=== PATIENT | female | born 1980 | race Caucasian/White ===

== ENCOUNTER → 2016-08-13 | Outpatient (CLI) | payer OTHER ==
--- NOTE | 2016-08-13 12:47 | US ---
August 13, [address] Kerwin Brown, Thank you for requesting consultation and a ultrasound to evaluate anatomy for your patient, Mrs. Toth. As you know, Argenis is a 35 year old G 1, P 0 with a rossi preg nolberto dating 20 w 0 d; MARTHA of 12/31/16 by LMP of 03/26/16 and ultrasound. Aneuploidy screening was pe rformed. She had reassuring NIPT, Preparent and MSAFP screening. This is complicated by obesity, mild intermittent asthma and a history of hypertension. Sh georgiana had known proteinuria in this at 316 mg/24 hr. ULTRASOUND Number of fetuses: 1 Placental location: Anterior; no evidence of previa Placental cord insertion: Eccentric presentation: Variable Cervix: 4.9 cm viewed transabdominally Maximum Vertical Pocket: 4.3 cm The adnexa were evaluated. No pathology was seen. Right ovary is not seen on today's ultrasound. Left ovary is not seen on today's ultrasound. MEASUREMENTS: Biparietal diameter: 43 mm 19 weeks, 1 days Head circumference: 163 mm 19 weeks, 1 days Abdominal circumference: 144 mm 19 weeks, 5 days Femur length: 32 mm 19 weeks, 6 days Humerus length: 30 mm 19 weeks, 5 days Transcerebellar diameter: 20 mm 19 weeks, 3 days Average ultrasound age: 19 weeks, 4 days Estimated weight: 306 gm weight percentile: 28% ANATOMY Supratentorial brain: Normal including views of the falx, cavum septum pellucidum and choroids Lateral Ventricle: Normal, measuring 5.8 mm Posterior fossa: Normal including the cerebellum and cisterna magna Spine: Suboptimal Nuchal fold: 3.0 mm normal Face: Suboptimal Profile: Suboptimal Palate: Limited appears normal Heart: Suboptimal. Four chambers are noted, but position and maternal body habitus limited co mplete evaluation. Heart Rate 163 bpm Diaphragm: Suboptimal Stomach: Normal Umbilical cord insertion: Normal Right kidney: Suboptimal Left kidney: Suboptimal Bladder: Normal Number of cord vessels: Three Upper extremities: Present with limited views Lower extremities: Present with limited views of the feet Gender: Female IMPRESSION: 1. Intrauterine at 20 w 0 d, ultrasound is consistent with her established MARTHA of 12/31/16 . 2. Limited anatomic survey 3. Cervical length is normal at 4.9 cm without evidence of insufficiency. 4. Obesity, antepartum 5. Proteinuria in with a history of hypertension RECOMMENDATIONS: I had the opportunity to review today's ultrasound with your patient and her mother. The baby is appr opriately grown with normal amniotic fluid volume. We attempted a detailed review of the anato my. Unfortunately, much of the survey was limited today by maternal body habitus and pos ition. She is recommended to return in 4-6 weeks to complete our evaluation. I did not see any over tly concerning things, but there were limitations. We discussed the cardiovascular and renal system as it applies to blood pressure and the changes of m aternal physiology that accompany . She has known proteinuria which will likely worsen as p regnancy progresses secondary to increased renal plasma flow. She is at the "sweet spot" of pregnanc y for blood pressure as the systemic vascular resistance decreases to accommodate the increase in blo od volume that occurs in . I strongly suspect that she will have elevated blood pressures i n the third trimester. She is also aware that she is at an increased risk of not only gestational hy pertension but also preeclampsia given her weight, first , history of hypertension and known proteinuria. Close clinical surveillance is recommended. I would not follow proteinuria, particula rly in making the assessment of preeclampsia as this is very likely going to increase through her pre gnancy. However, elevated blood pressures does require evaluation including labs and symptoms. We d iscussed that severe range blood pressures will require medication during with a goal of 13 0-150s/80-90s. Should a blood pressure issue arise, given the normal pressures in early sh e would be deemed gestational hypertension versus preeclampsia. Delivery for nonsevere disease would be at 37 weeks. In summary, I recommend the followin. Follow up in 4-6 weeks. 2. Should fundal height assessment prove difficult for sizing, we are happy to follow by ultra sound on a monthly basis at your clinical discretion. 3. She is aware of the potential risks related to hypertensive disease in and knows that s he will have close clinical surveillance in your office. Thank you for allowing us the opportunity to evaluate your patient. Should you have any further ques tions or concerns please do not hesitate to contact me. Approximately 45 minutes were spent with the patient and 30 minutes were spent in face to face consu ltation. Ann Marie Mcgarry MD [facility] Diagnosis Department of Obstetrics & Gynecology [facility]
--- NOTE | 2016-08-13 14:53 | US ---
Ultrasound Obstetric Detailed Evaluation Indication: Growth and anatomy. Advanced maternal age. The estimated gestational age by LMP is 20 we eks and 0 days yielding an EDC of December 31, 2016. Comparison: None. Findings: Number: 1 Presentation: Variable Placental Location: Anterior without previa Cervix: 4.9 cm MVP: 4.3 cm Heart Rate: 163 bpm. Biometry: Biparietal Diameter: 43.41 mm 19 weeks, 1 days Head Circumference: 163.24 mm 19 weeks, 1 days Abdominal Circumference: 143.74 mm 19 weeks, 5 days Femur Length: 31.60 mm 19 weeks, 6 days Humerus Length: 29.65 mm 19 weeks, 5 days Transcerebellar Diameter: 20.21 mm 19 weeks, 3 days HC/AC: 1.14 (1.09 - 1.26) FL/BPD: 73% FL/AC: 22% Average Ultrasound Age: 19 weeks, 4 days EDC Based on Today's Average Ultrasound Age: January 03, 2016 Estimated weight is 306 gms +/- 45 gms. The estimated weight is at the 28 % based on previous dating. ANATOMY SURVEY: Supratentorial Brain: Normal Posterior Fossa: Normal Spine: Suboptimal Nuchal fold: Normal Nose and Lips: Suboptimal Facial Profile: Suboptimal Heart: Four chamber heart. 163 bpm. Intact intraventricular septum. Cardiac Outflow Tracts: Suboptimal Stomach: Normal Umbilical Cord Insertion: Normal Kidneys: Suboptimal Bladder: Normal Number of Cord Vessels: Three Upper Extremities: Suboptimal Lower Extremities: Suboptimal. Impression: 1. Living rossi in variable presentation. 2. Size concordant with dates. 3. Limited anatomy. Recommend follow-up in 4-6 weeks. 4. Please see Dr. Ángel Navarro consult and recommendations.
== END ==
LOC: FIMAGING 10:31
PROVIDERS: ATTEND Obstetrics & Gynecology
DX: O99.212 Obesity complicating pregnancy, second trimester (principal); O26.92 Pregnancy related conditions, unspecified, second trimester; O99.512 Diseases of the respiratory system complicating pregnancy, second trimester; J45.909 Unspecified asthma, uncomplicated; Z3A.20 20 weeks gestation of pregnancy

== ENCOUNTER → 2016-09-14 | Outpatient (CLI) | payer OTHER | LOC: FIMAGING 08:46 | PROVIDERS: ATTEND Obstetrics & Gynecology | DX: O99.212 Obesity complicating pregnancy, second trimester (principal); O10.012 Pre-existing essential hypertension complicating pregnancy, second trimester; R80.9 Proteinuria, unspecified; Z3A.24 24 weeks gestation of pregnancy ==

== ENCOUNTER → 2016-10-20 | Outpatient (CLI) | payer OTHER | LOC: FIMAGING 08:32 | PROVIDERS: ATTEND Obstetrics & Gynecology | DX: O10.013 Pre-existing essential hypertension complicating pregnancy, third trimester (principal); O99.213 Obesity complicating pregnancy, third trimester; E66.9 Obesity, unspecified; Z3A.30 30 weeks gestation of pregnancy ==

== ENCOUNTER 2016-11-20 06:00 | Inpatient (IN) | payer OTHER ==
[2016-12-21] MEDS ORDERED: OXYTOCIN/RINGERS LACTATE 1,000 ML IV PRN (06:21)
[2016-12-21] MEDS ORDERED: EPSOM SALT 454 GM TP PRN (06:21)
[2016-12-21] MEDS ORDERED: OLIVE OIL 118 ML BTL MISC PRN (06:21)
[2016-12-21] MEDS ORDERED: AMPICILLIN SODIUM 2 GM in NS 100 ML IV ONE ×2 (06:21→06:30)
[2016-12-21] MEDS ORDERED: TERBUTALINE SULFATE 1 MG/ML VIAL IV PRN (06:21)
[2016-12-21] MEDS ORDERED: LR 1,000 ML IV PRN (06:21)
[2016-12-21] MEDS ORDERED: CALCIUM CARBONATE 500 MG CHEWABLE TAB PO PRN (06:23)
[2016-12-21] MEDS ORDERED: ACETAMINOPHEN 325 MG TAB PO PRN (06:23)
[2016-12-21] MEDS ORDERED: ZOLPIDEM TARTRATE 5 MG TAB PO PRN (06:24)
[2016-12-21] MEDS ORDERED: OXYTOCIN/LR *STANDARD DOSE PROTOCOL IV SCH (06:30)
[2016-12-21] MEDS ORDERED: AMMONIA AROMATIC 1 EACH AMP IH ONE (06:32)
[2016-12-21] MEDS ORDERED: LIDOCAINE 1% 300 MG/30 ML SDV ONE (06:32)
[2016-12-21] MEDS ORDERED: TERBUTALINE SULFATE 1 MG/ML VIAL ONE (06:32)
[2016-12-21] MEDS ORDERED: OLIVE OIL 118 ML BTL ONE (06:32)
[2016-12-21] MEDS ORDERED: MISOPROSTOL 200 MCG TAB ONE (06:33)
[2016-12-21] MEDS ORDERED: OXYTOCIN 10 UNIT/ML VIAL ONE (06:33)
[2016-12-21 06:36] LABS: % IMMATURE GRANULYOCYTES 0.7 % (0.0-1.1); ABSOLUTE IMMATURE GRANULOCYTES 0.09 10^3/uL (0.00-0.10); ADD DIFF? NO; ADD MORPH? NO; ADD SCAN? NO; ATYPICAL LYMPHOCYTE FLAG 0 (0-99); FRAGMENT RBC FLAG 0 (0-99); HEMATOCRIT 34.4 % (38.0-47.0); HEMOGLOBIN 11.9 g/dL (12.6-16.3); LEFT SHIFT FLG 10 (0-99); LIPEMIA HEMOLYSIS FLAG 90 (0-99); MEAN CELL HEMOGLOBIN 28.9 pg (27.9-34.1); MEAN CELL HEMOGLOBIN CONCENTR. 34.6 g/dL (32.4-36.7); MEAN CELL VOLUME 83.5 fL (81.5-99.8); MEAN PLATELET VOLUME 10.5 fL (8.7-11.7); PLATELET CLUMPS FLAG 0 (0-99); PLATELET COUNT 270 10^3/uL (150-400); RED BLOOD CELL COUNT 4.12 10^6/uL (4.18-5.33); RED CELL DISTRIBUTION WIDTH 14.2 % (11.5-15.2)
[2016-12-21 06:52] LABS: ALANINE AMINOTRANSFERASE 20 IU/L (9-52); ASPARTATE AMINOTRANSFERASE 20 IU/L (14-46); BILIRUBIN,TOTAL 0.5 mg/dL (0.1-1.4); BILIRUBIN-CONJUGATED 0.3 mg/dL (0.0-0.5); BILIRUBIN-UNCONJUGATED 0.2 mg/dL (0.0-1.1); CREATININE 0.6 mg/dL (0.6-1.0); GLOMERULAR FILTRATION RATE > 60; LACTATE DEHYDROGENASE 342 IU/L (313-618); URIC ACID 5.9 mg/dL (2.5-6.8)
--- NOTE | 2016-12-21 08:49 | OBPROG ---
OBG Labor Progress Note Assessment/Plan: Assessment: 36 yo @ 38 4/7, IOL for CHTN, doing well. Plan: 12/21/16 08:47 No pre-eclampsia symptoms and normal pre-eclampsia labs. Discussed if BP remained high after epidural, would begin medication. Expect . On amp for GBS positive. Subjective: 36 yo @ 38 4/7, IOL for CHTN, doing well. Objective: 12/21/16 06:20 12/21/16 06:20 Patient ABO/Rh A POSITIVE 12/21/16 06:20 Uric Acid 5.9 mg/dL (2.5-6.8) 12/21/16 06:20 Total Bilirubin 0.5 mg/dL (0.1-1.4) 12/21/16 06:20 Conjugated Bilirubin 0.3 mg/dL (0.0-0.5) 12/21/16 06:20 Unconjugated Bilirubin 0.2 mg/dL (0.0-1.1) 12/21/16 06:20 AST 20 IU/L (14-46) 12/21/16 06:20 ALT 20 IU/L (9-52) 12/21/16 06:20 Lactate Dehydrogenase 342 IU/L (313-618) 12/21/16 06:20 143/86 85 36.2 - SVE Dilation (cm): 5 Effacement (%): 80 Station: 0 Niño Current Contraction Pattern: Regular FHR (bpm): 150 FHR Pattern Variability: Moderate FHR Category: 2 Membranes: AROM Amniotic Fluid Color: Clear Oxytocin Orders Assessment - Pre-Induction/Augmentation Assessment Gestational Age: 38 week(s) and 4 day(s) ICD10 Worksheet Patient Problems: Problems Problem Status Onset Chronic hypertension affecting Acute
[2016-12-21] MEDS ORDERED: BUPIVACAINE 0.25% 30 ML SDV ONE (09:32)
[2016-12-21] MEDS ORDERED: fentaNYL 2MCG/ML/BUP 0.1% RTU 100 ML BAG EP ONE (09:32)
[2016-12-21] MEDS ORDERED: PHENYLEPHRINE HCL 100 MCG/ML SYR ONE (09:33)
[2016-12-21] MEDS ORDERED: fentaNYL 100 MCG/2 ML INJ ONE (09:34)
--- NOTE | 2016-12-21 10:13 | PREANESOB ---
Obstetric Pre-Anesthesia Info - General Info Proposed Procedure: Labor and delivery : 1 Para: 0 WBD: 38 - Info Status: Full Term Monitors: External FHR Baseline (bpm): 135 FHR Pattern: Reassuring - Labor Status Cervical Dilation per last OB SVE: 5 Station per last OB SVE: 0 Pitocin: In Use PIH: Mild Indications for Labor Analgesia: BP Control, Induction of Labor, Pain Control Labor Epidural: Proposed Anesthesia ROS: Mild asthma uses inhaler 2 or 3 times per year. Allergies/Adverse Reactions: Allergy/AdvReac Type Severity Reaction Status Date / Time No Known Allergies Allergy Verified 07/03/15 11:05 Home Medications: Medication Instructions Recorded Albuterol [Proventil Inhaler HFA 1 - 2 puffs IH Q4PRN PRN #1 mdi 04/15/12 (*)] IRON,CARBONYL [IRON] 65 mg PO DAILY 12/21/16 Nitrofurantoin Monohyd/M-Cryst 100 mg PO 12/21/16 [Macrobid 100 mg Capsule] Pnv No.118/Iron Fumarate/FA 2 each PO 12/21/16 [ 19 Chewable Tablet] Visit Medications: Generic Name Dose Route Start Last Admin Trade Name Freq PRN Reason Stop Dose Admin Acetaminophen 650 mg 12/21/16 06:23 Tylenol PO 06/19/17 06:22 Q6H PRN Pain, Mild/Fever, Can Take PO Calcium Carbonate 500 - 1,000 mg 12/21/16 06:23 Tums PO 06/19/17 06:22 Q4H PRN GERD Oxytocin/Lactated Ringer's 500 mls @ 0 mls/hr 12/21/16 06:30 12/21/16 06:56 Pitocin 30 Units/Lr (Premix) IV 06/19/17 06:29 500 mls CONT JOSEPH Administration Protocol Per Protocol Ampicillin Sodium 1 gm/ Sodium 100 mls @ 200 mls/hr 12/21/16 10:23 Chloride IV 01/20/17 10:22 Q4H JOSEPH Protocol Lactated Ringer's 1,000 mls @ 0 mls/hr 12/21/16 06:21 Lr IV 06/19/17 06:20 PRN PRN SEE PROTOCOL CONDITIONS Protocol Per Protocol Oxytocin/Lactated Ringer's 1,000 mls @ 150 mls/hr 12/21/16 06:21 Pitocin 20 Units/Lr (Premix) IV PRN PRN Post- bleeding Ibuprofen 600 mg 12/21/16 06:21 Motrin PO 06/19/17 06:20 Q6HRS PRN post , inflammation Magnesium Sulfate 454 gm 12/21/16 06:21 Epsom Salt TP 06/19/17 06:20 PRN PRN perineal discomfort [place] Oil 118 ml 12/21/16 06:21 Sweet Oil MISC 06/19/17 06:20 ONCE PRN preneal massage Terbutaline Sulfate 0.25 mg 12/21/16 06:21 Brethine IV 06/19/17 06:20 ONCE PRN Tachysystole Zolpidem Tartrate 5 mg 12/21/16 06:24 Ambien PO 06/19/17 06:23 HS PRN Sleep/Insomnia Discontinued Medications Generic Name Dose Route Start Last Admin Trade Name Freq PRN Reason Stop Dose Admin Ammonia (Aromatic Spirit) Confirm 12/21/16 06:32 Ammonia Aromatic Administered 12/21/16 06:33 Dose 1 each IH .STK-MED ONE Bupivacaine HCl Confirm 12/21/16 09:32 Sensorcaine 0.25% Sdv Administered 12/21/16 09:33 Dose 30 ml .ROUTE .STK-MED ONE Ephedrine Sulfate Confirm 12/21/16 06:32 Ephedrine Sulfate Administered 12/21/16 06:33 Dose 50 mg .ROUTE .STK-MED ONE Fentanyl Confirm 12/21/16 09:34 Sublimaze Administered 12/21/16 09:35 Dose 100 mcg .ROUTE .STK-MED ONE Fentanyl/Bupivacaine HCl Confirm 12/21/16 09:32 Fentanyl/Bupivacaine/Ns 2 Mcg/Ml 0.1% (Premix Administered 12/21/16 09:33 Dose 100 ml EP .STK-MED ONE Ampicillin Sodium 2 gm/ Sodium 110 mls @ 220 mls/hr 12/21/16 06:21 12/21/16 06:56 Chloride IV 12/21/16 06:50 110 mls ONCE ONE Administration Protocol Lidocaine HCl Confirm 12/21/16 06:32 Lidocaine Hcl 1% Administered 12/21/16 06:33 Dose 300 mg .ROUTE .STK-MED ONE Misoprostol Confirm 12/21/16 06:33 Cytotec Administered 12/21/16 06:34 Dose 800 mcg .ROUTE .STK-MED ONE [place] Oil Confirm 12/21/16 06:32 Sweet Oil Administered 12/21/16 06:33 Dose 118 ml .ROUTE .STK-MED ONE Oxytocin Confirm 12/21/16 06:33 Pitocin Administered 12/21/16 06:34 Dose 40 unit .ROUTE .STK-MED ONE Phenylephrine HCl Confirm 12/21/16 09:33 Neosynephrine Administered 12/21/16 09:34 Dose 1,000 mcg .ROUTE .STK-MED ONE Terbutaline Sulfate Confirm 12/21/16 06:32 Brethine Administered 12/21/16 06:33 Dose 1 mg .ROUTE .STK-MED ONE - Anesthesia History Response to Local Anesthetics: Normal - Social History Substance Use/Abuse: Denies - Focused Exam Blood Pressure: 143/86 Heart Rate: 90 Respiratory Rate: 18 Height/Weight (Nursing): Height 167.64 cm Weight 120.202 kg Physical Exam: Within normal limits, no wheezing. ASA Status: II Labs: 12/21/16 06:20 12/21/16 06:20 Patient ABO/Rh A POSITIVE 12/21/16 06:20 Uric Acid 5.9 mg/dL (2.5-6.8) 12/21/16 06:20 Total Bilirubin 0.5 mg/dL (0.1-1.4) 12/21/16 06:20 Conjugated Bilirubin 0.3 mg/dL (0.0-0.5) 12/21/16 06:20 Unconjugated Bilirubin 0.2 mg/dL (0.0-1.1) 12/21/16 06:20 AST 20 IU/L (14-46) 12/21/16 06:20 ALT 20 IU/L (9-52) 12/21/16 06:20 Lactate Dehydrogenase 342 IU/L (313-618) 12/21/16 06:20 - Plan Anesthetic Plan: CSE Consent Signed and on Chart: Yes Patient/Guardian Understands and Agrees to Plan: Yes
[2016-12-21] MEDS ORDERED: AMPICILLIN SODIUM 1 GM in NS 100 ML IV SCH (10:30)
[2016-12-21] MEDS: AMPICILLIN SODIUM 1 GM in NS 100 ML IV SCH ×2 (11:08→18:43)
[2016-12-21] MEDS ORDERED: ONDANSETRON 4 MG/2 ML VIAL IVP PRN (11:50)
[2016-12-21] MEDS ORDERED: PHENYLEPHRINE HCL 100 MCG/ML SYR IVP PRN (11:50)
--- NOTE | 2016-12-21 11:53 | POSTANESTH ---
Post Anesthetic Evaluation Cardiovascular Status: Normal, Stable, Similar to Pre-Op Cond (Tolerated CSE well, stable, comfortable.) Respiratory Status: Normal, Stable, Similar to Pre-op Cond. Level of Consciousness/Mental Status: Can Participate in Eval, Alert and Oriented Pain Control: Adequate, Prn Tx Ordered Nausea/Vomiting Control: Adequate, Prn Tx Ordered Complications Possibly Related to Anesthesia: None Noted
[2016-12-21] MEDS ORDERED: fentaNYL 2MCG/ML/BUP 0.1% RTU 100 ML EP SCH (12:00)
[2016-12-21] MEDS ORDERED: LR 500 ML IV SCH (12:00)
--- NOTE | 2016-12-21 12:30 | OBPROG ---
OBG Labor Progress Note Assessment/Plan: Assessment: 36 yo @ 38 4/7, IOL for CHTN, doing well. Plan: No pre-eclampsia symptoms and normal pre-eclampsia labs. BP normalized after epidural. Expect . On amp for GBS positive. Expect . 12/21/16 12:28 Subjective: 36 yo @ 38 4/7, IOL for CHTN, doing well-feels pressure. Objective: 12/21/16 06:20 12/21/16 06:20 Patient ABO/Rh A POSITIVE 12/21/16 06:20 Uric Acid 5.9 mg/dL (2.5-6.8) 12/21/16 06:20 Total Bilirubin 0.5 mg/dL (0.1-1.4) 12/21/16 06:20 Conjugated Bilirubin 0.3 mg/dL (0.0-0.5) 12/21/16 06:20 Unconjugated Bilirubin 0.2 mg/dL (0.0-1.1) 12/21/16 06:20 AST 20 IU/L (14-46) 12/21/16 06:20 ALT 20 IU/L (9-52) 12/21/16 06:20 Lactate Dehydrogenase 342 IU/L (313-618) 12/21/16 06:20 Temp Pulse Resp BP Pulse Ox 90 18 143/86 H 12/21/16 11:50 12/21/16 11:50 12/21/16 11:50 128/74 87 36.1 - SVE Dilation (cm): 10 Effacement (%): 100 Station: +1 Dilation Complete Date: 12/21/16 Dilation Complete Time: 12:30 Niño Current Contraction Pattern: Regular FHR (bpm): 140 FHR Pattern Variability: Moderate FHR Category: 2 Membranes: AROM Amniotic Fluid Color: Clear - Procedures Non-surgical Procedures: Amniotomy Oxytocin Orders Assessment - Pre-Induction/Augmentation Assessment Gestational Age: 38 week(s) and 4 day(s) ICD10 Worksheet Patient Problems: Problems Problem Status Onset Chronic hypertension affecting Acute
[2016-12-21] MEDS ORDERED: HYDROCODONE/APAP 5/325 TAB PO PRN (14:44)
[2016-12-21] MEDS ORDERED: HYDROCORTISONE 0.5% CREAM TP PRN (14:44)
[2016-12-21] MEDS ORDERED: SIMETHICONE 80 MG TAB CHEW PO PRN (14:44)
--- NOTE | 2016-12-21 14:47 | OBDEL ---
Info Type: Vaginal GBS+: Yes Antibiotic Used for + GBS: Ampicillin Number of Antibiotic Doses Given: 2 Indications for Delivery: Chronic Hypertension Controlled No Meds Vaginal Delivery - Labor and Delivery Onset of Contractions Date: 12/21/16 Onset of Contractions Time: 10:00 Onset of Contractions Type: Induced Rupture of Membranes Date: 12/21/16 Rupture of Membranes Time: 08:30 Rupture of Membranes Type: Artificial Amniotic Fluid Color: Clear Dilation Complete Date: 12/21/16 Dilation Complete Time: 12:30 Placenta Delivery Date: 12/21/16 Non-surgical Procedures: Amniotomy Laceration: 2nd Degree Repair: 3-0, Vicryl Vaginal Sponge Count Correct: Yes Vaginal Needle Count Correct: Yes Vaginal Sweep Performed: No EBL: 200 ML Delivery Events: None - Medications Labor Augmentation/Induction Methods Used: Pitocin Labor Augmentation/Induction Indication: Medical [place] Data Niño Delivery Date: 12/21/16 Delivery Time: 14:29 MARTHA: 12/31/16 Gestational Age: 38 week(s) and 4 day(s) Sex of Infant: Female Score (1 Min): 8 Score (5 Min): 9 ICD10 Worksheet Patient Problems: Problems Problem Status Onset Chronic hypertension affecting Acute
--- NOTE | 2016-12-21 14:49 | OBGCSDC ---
General Delivery Information - General Info : 1 Para: 0 Delivery Physician/CNM: Leilani Mena Admission Date: 12/21/16 Labs: Patient ABO/Rh A POSITIVE 12/21/16 06:20 Hct 34.4 % (38.0-47.0) L 12/21/16 06:20 Vaginal - Diagnosis Labor: Induced Presentation at Delivery: Vertex Rupture of Membranes Type: Artificial Amniotic Fluid Color: Clear Laceration: 2nd Degree Repair: 3-0, Vicryl Delivery Events: None - Operations/Procedures Non-surgical Procedures: Amniotomy L&D Analgesia/Anesthesia Type: Epidural - Hospital Course Antepartum: CHRONIC HYPERTENSION, NO MEDS, AMA Intrapartum: nONE - Delivery Type: Vaginal Non-surgical Procedures: Amniotomy EBL: 200 ML [employer] Data Niño Delivery Date: 12/21/16 Delivery Time: 14:29 MARTHA: 12/31/16 Gestational Age: 38 week(s) and 4 day(s) Sex of : Female Score (1 Min): 8 Score (5 Min): 9
[2016-12-21] MEDS: IBUPROFEN 600 MG TAB PO PRN (21:31)
[2016-12-21] MEDS: DOCUSATE SODIUM 100 MG CAP PO PRN (21:32)
[2016-12-22] MEDS: IBUPROFEN 600 MG TAB PO PRN ×3 (03:40→20:48)
--- NOTE | 2016-12-22 07:42 | OBPP ---
Progress Note Assessment/Plan: Assessment: 36 y.o. s/p PPD #1. Recovering well with good pain control. . Denies S&S of PIH. BP stable Plan: Routine care. Continue to monitor BPs. Begin Iron. consult. 12/22/16 07:39 Subjective: Reports feeling well with good pain control and minimal vaginal bleeding. infant. Eating and drinking well without nausea or vomiting. Ambulating without vertigo. Denies S&S of PIH (denies HAs, visual changes or RUQ pain). Appropriate mood with good support system. Objective: 12/21/16 06:20 12/21/16 06:20 Patient ABO/Rh A POSITIVE 12/21/16 06:20 Uric Acid 5.9 mg/dL (2.5-6.8) 12/21/16 06:20 Total Bilirubin 0.5 mg/dL (0.1-1.4) 12/21/16 06:20 Conjugated Bilirubin 0.3 mg/dL (0.0-0.5) 12/21/16 06:20 Unconjugated Bilirubin 0.2 mg/dL (0.0-1.1) 12/21/16 06:20 AST 20 IU/L (14-46) 12/21/16 06:20 ALT 20 IU/L (9-52) 12/21/16 06:20 Lactate Dehydrogenase 342 IU/L (313-618) 12/21/16 06:20 Temp Pulse Resp BP Pulse Ox 36.5 C 96 16 137/85 H 96 12/21/16 19:30 12/21/16 19:30 12/21/16 19:30 12/22/16 03:42 12/21/16 19:30 Uterine Position/Fundal Height: Umbilicus -1, Midline Uterine Tone: Firm Physical Exam - Physical Exam General Appearance: WD/WN, alert, no apparent distress EENT: normal ENT inspection Neck: non-tender, full range of motion, normal inspection Respiratory: lungs clear, normal breath sounds Cardiac/Chest: regular rate, rhythm Abdomen: non-tender, soft Extremities: non-tender, normal inspection Back: Normal inspection Skin: normal color, warm/dry Neuro/Psych: alert, normal mood/affect
[2016-12-22] MEDS: DOCUSATE SODIUM 100 MG CAP PO PRN ×2 (09:35→20:49)
[2016-12-22] MEDS: IRON POLYSAC/IRON HEME 28 MG TAB PO SCH (09:35)
[2016-12-23] MEDS: IBUPROFEN 600 MG TAB PO PRN ×2 (02:45→08:43)
--- NOTE | 2016-12-23 08:18 | OBGCSDC ---
General Delivery Information - General Info : 1 Para: 1 Delivery Physician/CNM: Leilani Mena Labs: Patient ABO/Rh A POSITIVE 12/21/16 06:20 Hct 34.4 % (38.0-47.0) L 12/21/16 06:20 Vaginal - Diagnosis Labor: Induced Presentation at Delivery: Vertex Rupture of Membranes Type: Artificial Amniotic Fluid Color: Clear Laceration: 2nd Degree Repair: 3-0, Vicryl Delivery Events: None - Operations/Procedures Non-surgical Procedures: Amniotomy L&D Analgesia/Anesthesia Type: Epidural - Hospital Course Antepartum: CHTN. Stopped medication at 8 weeks Intrapartum: IOL, uncomplicated : Routine care. Rh pos, Rub immune. BPs in mild range. No e/o preeclampsia. Check BPs at home and plan f/u 2 weeks - Delivery Non-surgical Procedures: Amniotomy L&D Analgesia/Anesthesia Type: Epidural [place] Data Niño Delivery Date: 12/21/16 Delivery Time: 14:29 MARTHA: 12/31/16 Gestational Age: 38 week(s) and 6 day(s) Sex of Infant: Female [place] Weight (gm): 3363 kg Score (1 Min): 8 Score (5 Min): 9 Discharge Information - Discharge Information Discharge Medications: Ibuprofen Condition: Good Instruction/Follow Up: Two Weeks Discharge Physician/CNM: Matilde Carpio
[2016-12-23 08:34] VITALS: BP 97/60; PULSE 69; RESP 14; TEMP 98.3; O2SAT 95
[2016-12-23] MEDS: IRON POLYSAC/IRON HEME 28 MG TAB PO SCH (08:43)
== END 2016-12-23 11:05 | disposition home or self-care (01) | DRG 774 ==
LOC: FLD 12-21 05:50 → FOB 12-21 17:47
PROVIDERS: ADMIT Obstetrics & Gynecology; ATTEND Obstetrics & Gynecology
DX: O10.913 Unspecified pre-existing hypertension complicating pregnancy, third trimester (principal); O70.1 Second degree perineal laceration during delivery; O09.513 Supervision of elderly primigravida, third trimester; O99.820 Streptococcus B carrier state complicating pregnancy; Z3A.38 38 weeks gestation of pregnancy; Z37.0 Single live birth
CPT/HCPCS: J0290; J2370; J2590; J3010; J3105

== ENCOUNTER → 2016-12-03 | Outpatient (CLI) | payer OTHER | LOC: FIMAGING 11:33 | PROVIDERS: ATTEND Obstetrics & Gynecology | DX: O09.513 Supervision of elderly primigravida, third trimester (principal); O10.013 Pre-existing essential hypertension complicating pregnancy, third trimester; Z3A.33 33 weeks gestation of pregnancy ==

== ENCOUNTER 2016-12-20 17:00 | Observation (INO) | payer OTHER ==
[2016-12-20] MEDS ORDERED: NS 100 ML BAG (MINI-BAG) IV ONE (19:54)
== END 2016-12-20 20:20 | disposition home or self-care (01) ==
LOC: INTOOBSV 19:20 → FLD 19:20
PROVIDERS: ADMIT Obstetrics & Gynecology; ATTEND Obstetrics & Gynecology
PROC: 0U7C7DZ Dilation of Cervix with Intraluminal Device, Via Natural or Artificial Opening (ICD-10-PCS; principal; 2016-12-20)
DX: Z34.83 Encounter for supervision of other normal pregnancy, third trimester (principal)
CPT/HCPCS: G0378

== ENCOUNTER → 2017-11-04 | Outpatient (CLI) | payer OTHER | LOC: FIMAGING 12:40 | PROVIDERS: ATTEND Family Medicine | DX: R05 Cough (principal) ==